=== PATIENT | male | born 1930 | race Caucasian/White ===

== ENCOUNTER 2016-11-24 10:02 | Inpatient (IN) | payer OTHER, BC ==
[~2016-11-24] VITALS: Ht 180.3 cm; Wt 88.5 kg
[2016-11-24 10:29] LABS: HEMATOCRIT 31.4 % (38.0-50.0); MCHC 31.2 G/DL (30.0-36.0); MCV 86.5 FL (86-99); MEAN PLAT.VOLUME 10.6 uM^3 (9.0-12.4); PLATELET COUNT 326 K/uL (156-360); RBC DIS.WIDTH-CV 15.8 % (11.8-14.6); RBC DIS.WIDTH-SD 50.3 % (39-53); RED BLOOD COUNT 3.63 M/uL (4.00-5.50); WHITE BLOOD COUNT 12.9 K/uL (4.1-10.2)
[2016-11-24 10:41] LABS: CHLORIDE 105 mEq/L (99-109); POTASSIUM 3.6 mEq/L (3.7-5.4); SODIUM 140 mEq/L (136-147)
[2016-11-24 10:43] LABS: GLUCOSE 127 mg/dL (70-99)
[2016-11-24 10:45] LABS: ANION GAP 13 MEQ/L (2-14)
[2016-11-24 10:47] LABS: GFR ESTIMATE (CALCULATED) > 59 mL/min/
[2016-11-24 10:48] LABS: UREA NITROGEN (BUN) 30 mg/dL (9-23)
[2016-11-24 13:09] LABS: TROP-I INTERPRETATION NEGATIVE; TROPONIN-I 0.08 ng/mL (0.0-0.30)
[2016-11-24] MEDS ORDERED: DIOVAN160 MG PO (15:16)
[2016-11-24] MEDS ORDERED: LOPRESSOR50 MG PO (15:16)
[2016-11-24] MEDS ORDERED: ZOCOR40 MG PO (15:17)
[2016-11-24 17:06] VITALS: BP 124/84
[2016-11-24 19:11] LABS: TROP-I INTERPRETATION NEGATIVE
[2016-11-24 19:32] VITALS: BP 122/71
[2016-11-24 23:43] VITALS: BP 118/65
[2016-11-25 01:13] LABS: TROP-I INTERPRETATION NEGATIVE
[2016-11-25 04:35] VITALS: BP 116/68
[2016-11-25 07:27] LABS: ANION GAP 17 MEQ/L (2-14); CHLORIDE 100 MEQ/L (99-109); GFR ESTIMATE (CALCULATED) 47 mL/min/; GLUCOSE 124 mg/dL (70-99); POTASSIUM 3.9 MEQ/L (3.7-5.4); SAMPLE HEMOLYSIS CHECK 0; SAMPLE ICTERIC CHECK 0; SAMPLE LIPEMIA CHECK 0; SODIUM 141 MEQ/L (136-147); UREA NITROGEN (BUN) 35 mg/dL (9-23)
[2016-11-25 08:57] LABS: BASOPHIL COUNT 0.1 K/uL (0-0.1); EOSINOPHIL (%) 0.1 % (0-5); IMMATURE GRANULOCYTE (%) 0.5 % (0.0-0.7); IMMATURE GRANULOCYTE COUNT 0.1 K/uL; LYMPHOCYTE COUNT 1.6 K/uL (1.0-2.8); MCH 26.7 PG (29.0-34.0); MCHC 30.6 G/DL (30.0-36.0); MCV 87.3 FL (86-99); NEUTROPHIL (%) 78.5 % (45-76); PLATELET COUNT 296 K/uL (156-360); RBC DIS.WIDTH-CV 15.9 % (11.8-14.6); RBC DIS.WIDTH-SD 50.5 % (39-53); RED BLOOD COUNT 3.78 M/uL (4.00-5.50); WHITE BLOOD COUNT 12.7 K/uL (4.1-10.2)
[2016-11-25 09:08] VITALS: BP 120/70
[2016-11-25 16:04] VITALS: BP 92/61
[2016-11-25 22:33] VITALS: BP 112/62
[2016-11-26 04:27] VITALS: BP 106/67
[2016-11-26 06:10] LABS: ANION GAP 15 MEQ/L (2-14); CHLORIDE 99 MEQ/L (99-109); GFR ESTIMATE (CALCULATED) 38 mL/min/; GLUCOSE 106 mg/dL (70-99); POTASSIUM 3.9 MEQ/L (3.7-5.4); SAMPLE HEMOLYSIS CHECK 0; SAMPLE ICTERIC CHECK 0; SAMPLE LIPEMIA CHECK 0; SODIUM 140 MEQ/L (136-147); UREA NITROGEN (BUN) 50 mg/dL (9-23)
[2016-11-26 07:47] VITALS: BP 98/58
[2016-11-26] MEDS ORDERED: METOPROLOL SUCC25 MG PO (10:39)
[2016-11-26] MEDS ORDERED: ASPIR-LOW81 MG PO (10:39)
[2016-11-26] MEDS ORDERED: FUROSEMIDE40 MG PO (10:40)
[2016-11-26] MEDS ORDERED: DIOVAN160 MG PO (10:40)
== END 2016-11-26 11:33 | disposition home or self-care (01) | DRG 293 ==
LOC: EME 10:02 → 5SOUTH 15:18 → EDOF 15:18 → ENRESERV 15:27 → 5SOUTH 16:38
PROVIDERS: Family Medicine; Internal Medicine; Nurse Practitioner Family
DX: I11.0 Hypertensive heart disease with heart failure (principal); I50.23 Acute on chronic systolic (congestive) heart failure; T44.7X6A Underdosing of beta-adrenoreceptor antagonists, initial encounter; Z91.138 Patient's unintentional underdosing of medication regimen for other reason; N28.9 Disorder of kidney and ureter, unspecified; T50.2X5A Adverse effect of carbonic-anhydrase inhibitors, benzothiadiazides and other diuretics, initial encounter; D64.9 Anemia, unspecified; E78.5 Hyperlipidemia, unspecified; I25.10 Atherosclerotic heart disease of native coronary artery without angina pectoris; I42.9 Cardiomyopathy, unspecified; I27.20 Pulmonary hypertension, unspecified; I08.0 Rheumatic disorders of both mitral and aortic valves; Z90.01 Acquired absence of eye; Z23 Encounter for immunization; Z87.891 Personal history of nicotine dependence; Z85.830 Personal history of malignant neoplasm of bone; Z95.5 Presence of coronary angioplasty implant and graft; I25.2 Old myocardial infarction; Z91.14 Patient's other noncompliance with medication regimen
CPT/HCPCS: 71020; 80048; 83880; 84484; 85025; 85027; 90686; 93005; 93306; 99281; 99285; J1650; J1940

== ENCOUNTER 2016-12-07 16:20 | Emergency (ER) | payer OTHER, BC ==
[~2016-12-07] VITALS: Ht 177.8 cm; Wt 89.5 kg
[~2016-12-07 16:20] MED LIST: ASPIR-LOW81 MG PO; DIOVAN160 MG PO; FUROSEMIDE40 MG PO; LOPRESSOR50 MG PO; METOPROLOL SUCC25 MG PO; ZOCOR40 MG PO
[2016-12-07 18:13] LABS: CHLORIDE 104 mEq/L (99-109); POTASSIUM 4.3 mEq/L (3.7-5.4); SODIUM 139 mEq/L (136-147)
[2016-12-07 18:16] LABS: GLUCOSE 107 mg/dL (70-99)
[2016-12-07 18:17] LABS: ANION GAP 11 MEQ/L (2-14); BASOPHIL COUNT 0.1 K/uL (0-0.1); EOSINOPHIL (%) 0.3 % (0-5); HEMATOCRIT 30.5 % (38.0-50.0); IMMATURE GRANULOCYTE (%) 0.3 % (0.0-0.7); INSTRUMENT ABS NEUTROPHIL CT 7.3 K/uL; LYMPHOCYTE COUNT 1.9 K/uL (1.0-2.8); MCHC 30.5 G/DL (30.0-36.0); MEAN PLAT.VOLUME 11.6 uM^3 (9.0-12.4); MONOCYTE (%) 8.8 % (3-12); MONOCYTE COUNT 0.9 K/uL (0-0.8); NEUTROPHIL (%) 71.7 % (45-76); NEUTROPHIL COUNT 7.3 K/uL (1.8-6.4); PLATELET COUNT 332 K/uL (156-360); RBC DIS.WIDTH-SD 56.8 % (39-53); RED BLOOD COUNT 3.72 M/uL (4.00-5.50); WHITE BLOOD COUNT 10.1 K/uL (4.1-10.2)
[2016-12-07 18:18] LABS: TOTAL BILIRUBIN 1.5 mg/dL (0.0-1.0)
[2016-12-07 18:19] LABS: ALKALINE PHOSPHATASE 62 IU/L (3-129); GFR ESTIMATE (CALCULATED) 41 mL/min/
[2016-12-07 18:20] LABS: UREA NITROGEN (BUN) 48 mg/dL (9-23)
[2016-12-07 18:25] LABS: TROP-I INTERPRETATION NEGATIVE; TROPONIN-I 0.04 ng/mL (0.0-0.30)
[2016-12-07 21:50] VITALS: BP 121/66
== END 2016-12-07 21:50 | disposition home or self-care (01) ==
LOC: EME 16:20
PROVIDERS: Emergency Medicine
DX: I50.9 Heart failure, unspecified (principal); R42 Dizziness and giddiness; I10 Essential (primary) hypertension; E78.5 Hyperlipidemia, unspecified; Z79.82 Long term (current) use of aspirin; Z87.891 Personal history of nicotine dependence
CPT/HCPCS: 71020; 80053; 83735; 83880; 84484; 85025; 93005; 99281; 99285; J1940